=== PATIENT | male | born 1960 | race Caucasian/White ===

== ENCOUNTER → 2016-11-10 | Outpatient (CLI) | payer OTHER ==
[~2016-11-10] MED LIST: ACET325S8 PO; CHLO25CA PO; DILA100C PO; IBUP800T23 PO; PHEN100C PO
== END ==
LOC: CLAB 12:18
PROVIDERS: ATTEND Family Medicine
DX: R56.9 Unspecified convulsions (principal)
CPT/HCPCS: 36415; 80185

== ENCOUNTER → 2016-11-16 | Outpatient (CLI) | payer OTHER ==
[~2016-11-16] MED LIST changes: -ACET325S8 PO; -CHLO25CA PO; -DILA100C PO
[2016-11-16 07:24] LABS: AUTOMATED NEUTROPHIL # 3.9 TH/MM3 (1.8-7.7); BASOPHIL % 0.7 % (0.0-2.0); EOSINOPHIL # 0.2 TH/MM3 (0-0.4); EOSINOPHIL % 3.4 % (0.0-4.0); HEMATOCRIT 35.9 % (39.0-51.0); HEMO FLAGS DIFF FINAL; LYMPH % 20.5 % (9.0-44.0); LYMPHOCYTE # 1.2 TH/MM3 (1.0-4.8); MEAN CELL VOLUME 89.1 FL (80.0-100.0); MEAN CORPUSCULAR HEMOGLOBIN 31.4 PG (27.0-34.0); MEAN CORPUSCULAR HGB CONC 35.2 % (32.0-36.0); MONO % 9.9 % (0.0-8.0); NEUT % 65.5 % (16.0-70.0); PLATELET COUNT 251 TH/MM3 (150-450); RED BLOOD COUNT 4.03 MIL/MM3 (4.50-5.90); RED CELL DISTRIBUTION WIDTH 13.2 % (11.6-17.2)
[2016-11-16 07:55] LABS: AST (GOT) 19 U/L (15-37); BLOOD UREA NITROGEN 10 MG/DL (7-18); CHLORIDE 106 MEQ/L (98-107); GLOMERULAR FILTRATION RATE 86 ML/MIN (>89); GLUCOSE,FASTING 85 MG/DL (74-99); POTASSIUM 4.3 MEQ/L (3.5-5.1); SODIUM (NA) 140 MEQ/L (136-145)
[2016-11-16 08:04] LABS: ALKALINE PHOSPHATASE 146 U/L (45-117); ALT (GPT) 20 U/L (12-78); ANION GAP 8 MEQ/L (5-15); BICARBONATE 26.1 MEQ/L (21.0-32.0); HDL CHOLESTEROL 60.3 MG/DL (40.0-60.0); TOTAL BILIRUBIN ADULT 0.3 MG/DL (0.2-1.0)
[2016-11-16 08:05] LABS: LDL CHOLESTEROL 102 MG/DL (0-99)
== END ==
LOC: CLAB 08-17 12:43
PROVIDERS: ATTEND Family Medicine
DX: F10.10 Alcohol abuse, uncomplicated (principal); R56.9 Unspecified convulsions; Z72.0 Tobacco use
CPT/HCPCS: 36415; 80053; 80061; 84443; 85025

== ENCOUNTER → 2016-11-22 | Outpatient (CLI) | payer OTHER | LOC: CLAB 06:39 | PROVIDERS: ATTEND Family Medicine | DX: R56.9 Unspecified convulsions (principal) | CPT/HCPCS: 80185 ==

== ENCOUNTER → 2016-11-29 | Outpatient (CLI) | payer OTHER | LOC: CLAB 07:08 | PROVIDERS: ATTEND Family Medicine | DX: R56.9 Unspecified convulsions (principal) | CPT/HCPCS: 36415; 80185 ==

== ENCOUNTER → 2016-12-06 | Outpatient (CLI) | payer OTHER | LOC: CLAB 13:38 | PROVIDERS: ATTEND Family Medicine | DX: R56.9 Unspecified convulsions (principal) | CPT/HCPCS: 36415; 80185 ==

== ENCOUNTER → 2017-03-16 | Outpatient (CLI) | payer OTHER ==
[~2017-03-16] MED LIST changes: +CYCL1TAB29 PO
== END ==
LOC: CLAB 07:35
PROVIDERS: ATTEND Family Medicine
DX: R56.9 Unspecified convulsions (principal)
CPT/HCPCS: 36415; 80185

== ENCOUNTER 2017-07-05 16:26 | Emergency (ER) | payer OTHER ==
[~2017-07-05 16:26] MED LIST changes: +CYCL10TA PO; -CYCL1TAB29 PO; +IBUP1TAB7 PO; -IBUP800T23 PO
[2017-07-05 16:27] VITALS: BP 126/81; PULSE 97; RESP 18; TEMP 98.9; O2SAT 97
[2017-07-05] MEDS ORDERED: DILA100C PO (17:54)
--- NOTE | 2017-07-05 17:55 | PD ---
HPI Chief Complaint: Medication Refill Request Time Seen by Provider: 16:48 Travel History International Travel<30 days: No Contact w/Intl Traveler<30days: No Traveled to known affect area: No History of Present Illness HPI 56-year-old male here requesting refill of his Dilantin. Patient has known seizure history and has been on Dilantin for the last 25 years. He reports he ran out of his Dilantin 3 days ago and has been unable to get the prescription refilled because he was unable to reach Dr. Quach's office. He denies any seizure activity. No medical complaint. He reports he's been on the same dosage of Dilantin for greater than 5 years. [facility] Past Medical History Depression: Yes Cancer: No Cardiovascular Problems: No Diabetes: No Diminished Hearing: No Endocrine: No Genitourinary: No Headaches: Yes Immune Disorder: No Musculoskeletal: No Neurologic: Yes (SEIZURE) Psychiatric: No Reproductive: No Respiratory: No Seizures: Yes Past Surgical History Other Surgery: Yes (HERNIA REPAIR) Social History Alcohol Use: Yes (4 beers daily) Tobacco Use: No Substance Use: No Allergies-Medications (Allergen,Severity, Reaction): Coded Allergies: No Known Allergies (Verified Adverse Reaction, Unknown, 07/05/17) Reported Meds & Prescriptions Reported Meds & Active Scripts Active Dilantin (Phenytoin Extended) 100 Mg Cap 100 Mg PO QID Phenytoin Extended 100 Mg Cap 100 Mg PO QID Review of Systems Except as stated in HPI: all other systems reviewed are Neg Physical Exam Narrative GENERAL: Alert well-appearing male SKIN: Warm and dry. HEAD: Normocephalic. EYES: No scleral icterus. No injection or drainage. NECK: Supple, trachea midline. No JVD or lymphadenopathy. CARDIOVASCULAR: Regular rate and rhythm without murmurs, gallops, or rubs. RESPIRATORY: Breath sounds equal bilaterally. No accessory muscle use. GASTROINTESTINAL: Abdomen soft, non-tender, nondistended. MUSCULOSKELETAL: No cyanosis, or edema. BACK: Nontender without obvious deformity. No CVA tenderness. Data Data Last Documented VS Vital Signs Date Time Temp Pulse Resp B/P (MAP) Pulse Ox O2 Delivery O2 Flow Rate FiO2 07/05/17 18:15 07/05/17 16:27 98.9 97 18 97 Room Air Orders Orders Phenytoin (Dilantin) (07/05/17 16:52) Phenytoin (Dilantin) (07/05/17 18:00) Ed Discharge Order (07/05/17 17:57) Labs Laboratory Tests Test 07/05/17 17:00 Phenytoin (Dilantin) Level 4.6 MCG/ML [facility] Medical Decision Making Medical Screen Exam Complete: Yes Emergency Medical Condition: Yes Differential Diagnosis Medication refill, seizure disorder, Narrative Course 56-year-old male with known seizure disorder here requesting refill of his Dilantin. Due to insurance changes patient was unable to follow up with his doctor Dr. Charles Fry. He has been off his Dilantin for the last 3 days. He reports no seizure activity. The wet level was drawn here in emergency department found below 4.4. Patient will be represcribed his Dilantin at his current dose. He'll be given 1 dose here. He is instructed to follow-up with Dr. Quach. Diagnosis Primary Impression: Medication refill Referrals: Sakshi Quach MD [facility] Additional Instructions: Take the medication as per prescription. Follow with Dr. Quach. Scripts Phenytoin Extended (Dilantin) 100 Mg Cap 100 MG PO QID for Control Seizures, #120 CAP 0 Refills Prov: Lisa Martinez 07/05/17 Disposition: 01 DISCHARGE HOME Condition: Stable Lisa Martinez Jul 05, 2017 17:55
[2017-07-05] MEDS ORDERED: PHENYTOIN SODIUM 100 MG CAP PO ONE (18:00)
== END 2017-07-05 18:22 | disposition home or self-care (01) ==
LOC: NEPK 16:26
DX: G40.909 Epilepsy, unspecified, not intractable, without status epilepticus (principal); Z76.0 Encounter for issue of repeat prescription
CPT/HCPCS: 80185; 99283

== ENCOUNTER 2017-08-15 05:04 | Emergency (ER) | payer OTHER ==
[~2017-08-15] VITALS: Ht 177.8 cm; Wt 60.0 kg
[~2017-08-15 05:04] MED LIST changes: -CYCL10TA PO; +DILA100C PO; -IBUP1TAB7 PO
[2017-08-15 05:07] VITALS: BP 123/91; PULSE 90; RESP 16; TEMP 97.5; O2SAT 99
[2017-08-15] MEDS ORDERED: SODIUM CHLORIDE 0.9% FLUSH 10 ML FLUSH IVF PRN (05:30)
--- NOTE | 2017-08-15 05:34 | PD ---
HPI Chief Complaint: Dizziness Time Seen by Provider: 05:28 Travel History International Travel<30 days: No Contact w/Intl Traveler<30days: No Traveled to known affect area: No History of Present Illness HPI 56-year-old male patient with history of seizures currently on Dilantin, presents to the ER today for 3 days history of lightheadedness, feels like things are moving, feels unsteady. He also states he has had a few episodes of vomiting. He denies any headaches, new seizures, fevers, chest pains, shortness of breath, or other symptoms. He states that the last time sitting with this happened, he was blowing his Dilantin level. He states he has ran out of his Dilantin for several weeks. Modifying Factors: None Associated Signs & Symptoms: Dizziness, unsteadiness Risk Factors: Seizures PFSH Past Medical History Depression: Yes Cancer: No Cardiovascular Problems: No Diabetes: No Diminished Hearing: No Endocrine: No Genitourinary: No Headaches: Yes Immune Disorder: No Musculoskeletal: No Neurologic: Yes (SEIZURE) Psychiatric: No Reproductive: No Respiratory: No Immunizations Current: Yes Seizures: Yes Past Surgical History Other Surgery: Yes (HERNIA REPAIR) Social History Alcohol Use: No (QUIT) Tobacco Use: No Substance Use: No Allergies-Medications (Allergen,Severity, Reaction): Coded Allergies: No Known Allergies (Verified Adverse Reaction, Unknown, 08/15/17) Reported Meds & Prescriptions Reported Meds & Active Scripts Active Dilantin (Phenytoin Extended) 100 Mg Cap 100 Mg PO QID Phenytoin Extended 100 Mg Cap 100 Mg PO QID Review of Systems Except as stated in HPI: all other systems reviewed are Neg Physical Exam Narrative GENERAL: Well-developed middle age white male patient currently in mild distress. Awake and oriented 3. SKIN: Focused skin assessment warm/dry. HEAD: Atraumatic. Normocephalic. EYES: Pupils equal and round. No scleral icterus. No injection or drainage. ENT: No nasal bleeding or discharge. Mucous membranes pink and moist. NECK: Trachea midline. No JVD. Supple. CARDIOVASCULAR: Regular rate and rhythm. No murmur appreciated. RESPIRATORY: No accessory muscle use. Clear to auscultation. Breath sounds equal bilaterally. GASTROINTESTINAL: Abdomen soft, non-tender, nondistended. Hepatic and splenic margins not palpable. MUSCULOSKELETAL: No obvious deformities. No clubbing. No cyanosis. No edema. NEUROLOGICAL: Awake and alert. No obvious cranial nerve deficits. Motor grossly within normal limits. Normal speech. PSYCHIATRIC: Appropriate mood and affect; insight and judgment normal. Data Data Last Documented VS Vital Signs Date Time Temp Pulse Resp B/P (MAP) Pulse Ox O2 Delivery O2 Flow Rate FiO2 08/15/17 05:07 97.5 90 16 123/91 (102) 99 Orders Orders Complete Blood Count With Diff (08/15/17 05:28) Phenytoin (Dilantin) (08/15/17 05:28) Electrocardiogram (08/15/17 ) Ct Brain W/O Iv Contrast(Rout) (08/15/17 ) Blood Glucose (08/15/17 05:28) Ecg Monitoring (08/15/17 05:28) Iv Access Insert/Monitor (08/15/17 05:28) Oximetry (08/15/17 05:28) Comprehensive Metabolic Panel (08/15/17 05:28) Sodium Chloride 0.9% Flush (Ns Flush) (08/15/17 05:30) Lipase (08/15/17 05:28) Influenzae A/B Antigen (08/15/17 05:28) Labs Laboratory Tests Test 08/15/17 05:40 White Blood Count 6.6 TH/MM3 Red Blood Count 4.07 MIL/MM3 Hemoglobin 12.9 GM/DL Hematocrit 36.0 % Mean Corpuscular Volume 88.5 FL Mean Corpuscular Hemoglobin 31.8 PG Mean Corpuscular Hemoglobin Concent 35.9 % Red Cell Distribution Width 13.1 % Platelet Count 376 TH/MM3 Mean Platelet Volume 8.4 FL Neutrophils (%) (Auto) 56.5 % Lymphocytes (%) (Auto) 27.6 % Monocytes (%) (Auto) 10.3 % Eosinophils (%) (Auto) 4.4 % Basophils (%) (Auto) 1.2 % Neutrophils # (Auto) 3.8 TH/MM3 Lymphocytes # (Auto) 1.8 TH/MM3 Monocytes # (Auto) 0.7 TH/MM3 Eosinophils # (Auto) 0.3 TH/MM3 Basophils # (Auto) 0.1 TH/MM3 CBC Comment DIFF FINAL Differential Comment MDM Medical Decision Making Medical Screen Exam Complete: Yes Emergency Medical Condition: Yes Medical Record Reviewed: Yes Interpretation(s) EKG shows NSR, no ST elevation or depression, and no arrhythmias. No significant T-wave inversions. Laboratory Tests Test 08/15/17 05:40 Red Blood Count 4.07 MIL/MM3 (4.50-5.90) Hemoglobin 12.9 GM/DL (13.0-17.0) Hematocrit 36.0 % (39.0-51.0) Monocytes (%) (Auto) 10.3 % (0.0-8.0) Eosinophils (%) (Auto) 4.4 % (0.0-4.0) Last [address] 08/15/17 0000 Signed Impressions: Service Date/Time: Tuesday, August 15, 2017 05:42 - CONCLUSION: 1. No acute intracranial abnormalities. Monster York MD Differential Diagnosis Unsteadiness, dizziness: Dehydration versus metabolic issues versus vertigo versus acute intracranial processes Narrative Course CT the brain did not show any signs of acute intracranial processes. Lab work was ordered, CBC was unremarkable. EKG did not show dysrhythmias. Physician Communication Physician Communication Case is signed out to Dr. Hoang at 7 AM pending metabolic panel and Dilantin level. Disposition based on findings. Diagnosis Primary Impression: Dizziness Condition: Stable Rozina Bernal MD Aug 15, 2017 05:34
[2017-08-15 06:01] LABS: AUTOMATED NEUTROPHIL # 3.8 TH/MM3 (1.8-7.7); BASOPHIL # 0.1 TH/MM3 (0-0.2); BASOPHIL % 1.2 % (0.0-2.0); EOSINOPHIL # 0.3 TH/MM3 (0-0.4); EOSINOPHIL % 4.4 % (0.0-4.0); HEMOGLOBIN 12.9 GM/DL (13.0-17.0); LYMPH % 27.6 % (9.0-44.0); LYMPHOCYTE # 1.8 TH/MM3 (1.0-4.8); MEAN CELL VOLUME 88.5 FL (80.0-100.0); MEAN CORPUSCULAR HEMOGLOBIN 31.8 PG (27.0-34.0); MEAN CORPUSCULAR HGB CONC 35.9 % (32.0-36.0); MEAN PLATELET VOLUME 8.4 FL (7.0-11.0); MONO % 10.3 % (0.0-8.0); MONOCYTE # 0.7 TH/MM3 (0-0.9); NEUT % 56.5 % (16.0-70.0); PLATELET COUNT 376 TH/MM3 (150-450); RED BLOOD COUNT 4.07 MIL/MM3 (4.50-5.90); RED CELL DISTRIBUTION WIDTH 13.1 % (11.6-17.2); WHITE BLOOD COUNT 6.6 TH/MM3 (4.0-11.0)
--- NOTE | 2017-08-15 06:09 | RADRPT ---
EXAM DATE/TIME: 08/15/2017 05:42 [place] COMPARISON: No previous studies available for comparison. INDICATIONS : Dizziness. RADIATION DOSE: 35.56 CTDIvol (mGy) MEDICAL HISTORY : Seizures. SURGICAL HISTORY : None. ENCOUNTER: Initial ACUITY: 1 day PAIN SCALE: 0/10 LOCATION: cranial TECHNIQUE: Multiple contiguous axial images were obtained of the head. Using automated exposure control and adj ustment of the mA and/or kV according to patient size, radiation dose was kept as low as reasonably a chievable to obtain optimal diagnostic quality images. DICOM format image data is available electro nically for review and comparison. FINDINGS: CEREBRUM: The ventricles are normal for age. No evidence of midline shift, mass lesion, hemorrhage or acute in farction. No extra-axial fluid collections are seen. POSTERIOR FOSSA: The cerebellum and brainstem are intact. The 4th ventricle is midline. The cerebellopontine angle i s unremarkable. EXTRACRANIAL: The visualized portion of the orbits is intact. SKULL: The calvaria is intact. No evidence of skull fracture. CONCLUSION: 1. No acute intracranial abnormalities. Monster York MD on August 15, 2017 at 6:05 Board Certified Radiologist. This report was verified electronically.
[2017-08-15 07:10] VITALS: RESP 16; O2SAT 100
[2017-08-15 07:11] VITALS: BP 127/79; PULSE 64; RESP 16; TEMP 97.8; O2SAT 100
[2017-08-15 08:29] LABS: GLOMERULAR FILTRATION RATE 98 ML/MIN (>89)
[2017-08-15 08:30] LABS: ALBUMIN 3.9 GM/DL (3.4-5.0); ALT (GPT) 15 U/L (12-78); AST (GOT) 14 U/L (15-37); BICARBONATE 28.3 MEQ/L (21.0-32.0); BLOOD UREA NITROGEN 13 MG/DL (7-18); CALCIUM 8.9 MG/DL (8.5-10.1); CHLORIDE 104 MEQ/L (98-107); CREATININE 0.81 MG/DL (0.60-1.30); GLUCOSE,RANDOM 84 MG/DL (74-106); LIPASE 189 U/L (73-393); SODIUM (NA) 137 MEQ/L (136-145)
[2017-08-15 08:32] LABS: ALKALINE PHOSPHATASE 135 U/L (45-117); PHENYTOIN (DILANTIN) 0.7 MCG/ML (10.0-20.0); TOTAL BILIRUBIN ADULT 0.2 MG/DL (0.2-1.0); TOTAL PROTEIN 6.9 GM/DL (6.4-8.2)
[2017-08-15] MEDS ORDERED: FOSPHENYTOIN SODIUM 500 MG PE/10 ML VIAL IV ONE (08:45)
[2017-08-15 09:00] VITALS: BP 118/81; PULSE 67; RESP 16; TEMP 97.9; O2SAT 100
--- NOTE | 2017-08-15 09:10 | PD ---
Data Data Last Documented VS Vital Signs Date Time Temp Pulse Resp B/P (MAP) Pulse Ox O2 Delivery O2 Flow Rate FiO2 08/15/17 10:20 97.7 78 16 124/78 (93) 99 08/15/17 09:00 Room Air Orders Orders Complete Blood Count With Diff (08/15/17 05:28) Phenytoin (Dilantin) (08/15/17 05:28) Electrocardiogram (08/15/17 ) Ct Brain W/O Iv Contrast(Rout) (08/15/17 ) Blood Glucose (08/15/17 05:28) Ecg Monitoring (08/15/17 05:28) Iv Access Insert/Monitor (08/15/17 05:28) Oximetry (08/15/17 05:28) Comprehensive Metabolic Panel (08/15/17 05:28) Sodium Chloride 0.9% Flush (Ns Flush) (08/15/17 05:30) Lipase (08/15/17 05:28) Influenzae A/B Antigen (08/15/17 05:28) Fosphenytoin Inj (Cerebyx Inj) (08/15/17 08:45) Fosphenytoin Inj (Cerebyx Inj) (08/15/17 10:00) Ed Discharge Order (08/15/17 10:04) Labs Laboratory Tests Test 08/15/17 05:40 08/15/17 07:50 White Blood Count 6.6 TH/MM3 Red Blood Count 4.07 MIL/MM3 Hemoglobin 12.9 GM/DL Hematocrit 36.0 % Mean Corpuscular Volume 88.5 FL Mean Corpuscular Hemoglobin 31.8 PG Mean Corpuscular Hemoglobin Concent 35.9 % Red Cell Distribution Width 13.1 % Platelet Count 376 TH/MM3 Mean Platelet Volume 8.4 FL Neutrophils (%) (Auto) 56.5 % Lymphocytes (%) (Auto) 27.6 % Monocytes (%) (Auto) 10.3 % Eosinophils (%) (Auto) 4.4 % Basophils (%) (Auto) 1.2 % Neutrophils # (Auto) 3.8 TH/MM3 Lymphocytes # (Auto) 1.8 TH/MM3 Monocytes # (Auto) 0.7 TH/MM3 Eosinophils # (Auto) 0.3 TH/MM3 Basophils # (Auto) 0.1 TH/MM3 CBC Comment DIFF FINAL Differential Comment Blood Urea Nitrogen 13 MG/DL Creatinine 0.81 MG/DL Random Glucose 84 MG/DL Total Protein 6.9 GM/DL Albumin 3.9 GM/DL Calcium Level 8.9 MG/DL Alkaline Phosphatase 135 U/L Aspartate Amino Transf (AST/SGOT) 14 U/L Alanine Aminotransferase (ALT/SGPT) 15 U/L Total Bilirubin 0.2 MG/DL Sodium Level 137 MEQ/L Potassium Level 4.3 MEQ/L Chloride Level 104 MEQ/L Carbon Dioxide Level 28.3 MEQ/L Anion Gap 5 MEQ/L Estimat Glomerular Filtration Rate 98 ML/MIN Lipase 189 U/L Phenytoin (Dilantin) Level 0.7 MCG/ML MDM Supervised Visit with SERGE: No Narrative Course Patient care assumed from Dr. Duarte at 0700, this 56-year-old male who states he does not feel right after he ran out of his Dilantin a few days ago. I'm asked to follow up the Dilantin level loaded necessary. Patient is very nonspecific complaints of dizziness, neurologically intact, he was loaded with 1 g of Cerebyx, his Dilantin was refilled, discussing [place] dosing regimen but he states been on it for years, discussed at length follow-up with the [facility] and return to ED criteria. He stable for discharge. Diagnosis Primary Impression: Dizziness Referrals: [facility] Med/Other Pt SpecificInfo: Prescription(s) given Scripts Phenytoin Extended (Dilantin) 100 Mg Cap 100 MG PO QID for Control Seizures, #120 CAP 0 Refills Prov: Miguel A Hoagn MD 08/15/17 Disposition: 01 DISCHARGE HOME Condition: Stable Miguel A Hoang MD Aug 15, 2017 09:10
[2017-08-15] MEDS ORDERED: FOSPHENYTOIN INJ 1,000 MGPE in SODIUM CHLORIDE 0.9% INJ 50 ML IV ONE (10:00)
[2017-08-15] MEDS ORDERED: DILA100C PO (10:03)
[2017-08-15 10:20] VITALS: BP 124/78; TEMP 97.7
--- NOTE | 2017-08-15 19:34 | EKG ---
Date Performed: 08/15/2017 Time Performed: 05:35:36 PTAGE: 56 years EKG: Sinus rhythm POSSIBLE RIGHT VENTRICULAR CONDUCTION DELAY Since previous tracing, no significant change noted [facility] ECG PREVIOUS TRACING : 02/16/2016 13.30 DOCTOR: Garcia White Interpretating Date/Time 08/15/2017 19:34:02
== END 2017-08-15 10:20 | disposition home or self-care (01) ==
LOC: NEPE 05:04
DX: R42 Dizziness and giddiness (principal); R94.31 Abnormal electrocardiogram [ECG] [EKG]; R56.9 Unspecified convulsions; F32.9 Major depressive disorder, single episode, unspecified; Z79.899 Other long term (current) drug therapy
CPT/HCPCS: 70450; 80053; 80185; 83690; 85025; 87804; 93005; 96365; 99285; Q2009

== ENCOUNTER 2017-10-03 12:10 | Emergency (ER) | payer OTHER ==
[2017-10-03 12:32] VITALS: BP 135/74; PULSE 77; RESP 18; TEMP 98.4; O2SAT 99
[2017-10-03 13:33] LABS: AUTOMATED NEUTROPHIL # 4.4 TH/MM3 (1.8-7.7); BASOPHIL # 0.1 TH/MM3 (0-0.2); EOSINOPHIL # 0.2 TH/MM3 (0-0.4); EOSINOPHIL % 3.4 % (0.0-4.0); HEMATOCRIT 42.7 % (39.0-51.0); HEMOGLOBIN 14.7 GM/DL (13.0-17.0); LYMPH % 24.4 % (9.0-44.0); LYMPHOCYTE # 1.7 TH/MM3 (1.0-4.8); MEAN CELL VOLUME 89.7 FL (80.0-100.0); MEAN CORPUSCULAR HGB CONC 34.6 % (32.0-36.0); MEAN PLATELET VOLUME 8.5 FL (7.0-11.0); MONO % 9.6 % (0.0-8.0); MONOCYTE # 0.7 TH/MM3 (0-0.9); NEUT % 61.6 % (16.0-70.0); PLATELET COUNT 249 TH/MM3 (150-450); RED BLOOD COUNT 4.75 MIL/MM3 (4.50-5.90); RED CELL DISTRIBUTION WIDTH 13.3 % (11.6-17.2); WHITE BLOOD COUNT 7.2 TH/MM3 (4.0-11.0)
[2017-10-03 13:50] LABS: ALT (GPT) 17 U/L (12-78)
[2017-10-03 13:53] LABS: ALKALINE PHOSPHATASE 136 U/L (45-117); PHENYTOIN (DILANTIN) 0.6 MCG/ML (10.0-20.0); TOTAL BILIRUBIN ADULT 0.4 MG/DL (0.2-1.0); TOTAL PROTEIN 7.1 GM/DL (6.4-8.2)
[2017-10-03 13:55] LABS: ALBUMIN 3.7 GM/DL (3.4-5.0); AST (GOT) 17 U/L (15-37); BICARBONATE 24.7 MEQ/L (21.0-32.0); BLOOD UREA NITROGEN 9 MG/DL (7-18); CALCIUM 9.1 MG/DL (8.5-10.1); CHLORIDE 107 MEQ/L (98-107); CREATININE 0.84 MG/DL (0.60-1.30); GLOMERULAR FILTRATION RATE 94 ML/MIN (>89); GLUCOSE,RANDOM 92 MG/DL (74-106); MAGNESIUM 2.1 MG/DL (1.5-2.5); SODIUM (NA) 140 MEQ/L (136-145)
[2017-10-03 14:00] LABS: OVALOCYTES 1+ (NORMAL)
--- NOTE | 2017-10-03 14:06 | PD ---
HPI Chief Complaint: Seizure Time Seen by Provider: 14:03 Travel History International Travel<30 days: No Contact w/Intl Traveler<30days: No Traveled to known affect area: No History of Present Illness HPI 56-year-old male with well-known seizure disorder presents emergency department stating he ran out of his phenytoin 100 mg 4 times daily 2 weeks ago. He states last night he had a seizure, but denies any bodily harm currently. He is requesting refill of his medications today. Labs ordered in triage. He has no known drug allergies. PFSH Past Medical History Depression: Yes Cancer: No Cardiovascular Problems: No Diabetes: No Diminished Hearing: No Endocrine: No Genitourinary: No Headaches: Yes Immune Disorder: No Musculoskeletal: No Neurologic: Yes (SEIZURE) Psychiatric: No Reproductive: No Respiratory: No Immunizations Current: Yes Seizures: Yes Past Surgical History Other Surgery: Yes (HERNIA REPAIR) Social History Alcohol Use: No (QUIT) Tobacco Use: No Substance Use: No Allergies-Medications (Allergen,Severity, Reaction): Coded Allergies: No Known Allergies (Verified Adverse Reaction, Unknown, 08/15/17) Reported Meds & Prescriptions Reported Meds & Active Scripts Active Dilantin (Phenytoin Extended) 100 Mg Cap 100 Mg PO QID Phenytoin Extended 100 Mg Cap 100 Mg PO QID Review of Systems Except as stated in HPI: all other systems reviewed are Neg General / Constitutional: No: Fever, Chills Eyes: No: Visual changes HENT: No: Headaches, Vertigo, Lightheadedness, Sore Throat, Rhinitis, Rhinorrhea, Congestion, Nosebleed, Neck Stiffness, Neck Pain, Dental Difficulties, Earache Cardiovascular: No: Chest Pain or Discomfort Respiratory: No: Shortness of Breath Gastrointestinal: No: Abdominal Pain Genitourinary: No: Dysuria Musculoskeletal: No: Pain Skin: No Rash Neurologic: Positive: Seizures (See history of present illness per), No: Weakness Psychiatric: No: Depression Endocrine: No: Polydipsia Hematologic/Lymphatic: No: Easy Bruising Physical Exam Narrative GENERAL: Patient appears in no acute distress. He is resting comfortably on exam bed. SKIN: Warm and dry. Normal color. Normal turgor. No signs of trauma HEAD: Atraumatic. Normocephalic. Nontender. EYES: Pupils equal and round. No scleral icterus. No injection or drainage. ENT: No nasal bleeding or discharge. Mucous membranes pink and moist. No dental injury. No tongue or buccal membrane injury. Pharynx is clear. Airways patent. NECK: Trachea midline. Supple and nontender. CARDIOVASCULAR: Regular rate and rhythm. RESPIRATORY: No accessory muscle use. Clear to auscultation. Breath sounds equal bilaterally. GASTROINTESTINAL: Abdomen soft, non-tender, nondistended. Hepatic and splenic margins not palpable. MUSCULOSKELETAL: Extremities without clubbing, cyanosis, or edema. No obvious deformities. NEUROLOGICAL: Awake and alert. No obvious cranial nerve deficits. Motor grossly within normal limits. Five out of 5 muscle strength in the arms and legs. Normal speech. PSYCHIATRIC: Appropriate mood and affect; insight and judgment normal. Data Data Last Documented VS Vital Signs Date Time Temp Pulse Resp B/P (MAP) Pulse Ox O2 Delivery O2 Flow Rate FiO2 10/03/17 12:32 98.4 77 18 135/74 (94) 99 Orders Orders Complete Blood Count With Diff (10/03/17 12:33) Magnesium (Mg) (10/03/17 12:33) Comprehensive Metabolic Panel (10/03/17 12:33) Phenytoin (Dilantin) (10/03/17 12:33) Phenytoin (Dilantin) (10/03/17 14:15) Labs Laboratory Tests Test 10/03/17 13:00 White Blood Count 7.2 TH/MM3 Red Blood Count 4.75 MIL/MM3 Hemoglobin 14.7 GM/DL Hematocrit 42.7 % Mean Corpuscular Volume 89.7 FL Mean Corpuscular Hemoglobin 31.0 PG Mean Corpuscular Hemoglobin Concent 34.6 % Red Cell Distribution Width 13.3 % Platelet Count 249 TH/MM3 Mean Platelet Volume 8.5 FL Neutrophils (%) (Auto) 61.6 % Lymphocytes (%) (Auto) 24.4 % Monocytes (%) (Auto) 9.6 % Eosinophils (%) (Auto) 3.4 % Basophils (%) (Auto) 1.0 % Neutrophils # (Auto) 4.4 TH/MM3 Lymphocytes # (Auto) 1.7 TH/MM3 Monocytes # (Auto) 0.7 TH/MM3 Eosinophils # (Auto) 0.2 TH/MM3 Basophils # (Auto) 0.1 TH/MM3 CBC Comment AUTO DIFF Differential Comment AUTO DIFF CONFIRMED Platelet Estimate NORMAL Platelet Morphology Comment NORMAL Ovalocytes 1+ Blood Urea Nitrogen 9 MG/DL Creatinine 0.84 MG/DL Random Glucose 92 MG/DL Total Protein 7.1 GM/DL Albumin 3.7 GM/DL Calcium Level 9.1 MG/DL Magnesium Level 2.1 MG/DL Alkaline Phosphatase 136 U/L Aspartate Amino Transf (AST/SGOT) 17 U/L Alanine Aminotransferase (ALT/SGPT) 17 U/L Total Bilirubin 0.4 MG/DL Sodium Level 140 MEQ/L Potassium Level 3.8 MEQ/L Chloride Level 107 MEQ/L Carbon Dioxide Level 24.7 MEQ/L Anion Gap 8 MEQ/L Estimat Glomerular Filtration Rate 94 ML/MIN Phenytoin (Dilantin) Level 0.6 MCG/ML MDM Medical Decision Making Medical Screen Exam Complete: Yes Emergency Medical Condition: Yes Medical Record Reviewed: Yes Differential Diagnosis Seizure disorder. Need for medication refill. Need for local primary care follow-up. Narrative Course Patient is medically stable at time of exam. Labs show normal CBC Chemistry unremarkable Phenytoin level is low at 0.6. Patient is given phenytoin 200 mg p.o. now. Refill of his phenytoin is given 100 mg 4 times daily #120 Patient to follow-up with [facility] for refills. Diagnosis Primary Impression: Encounter for medication refill Additional Impression: Seizure Referrals: [facility] Patient Instructions: Epilepsy (DC), General Instructions Med/Other Pt SpecificInfo: Prescription(s) given Scripts Phenytoin Extended (Dilantin) 100 Mg Cap 100 MG PO QID for Control Seizures, #120 CAP 0 Refills Prov: Josefina Ricci DO 10/03/17 Disposition: 01 DISCHARGE HOME Condition: Stable Eliseo Sams Oct 03, 2017 14:06
[2017-10-03] MEDS ORDERED: DILA100C PO (14:07)
[2017-10-03] MEDS ORDERED: PHENYTOIN SODIUM 100 MG CAP PO ONE (14:15)
[2017-10-03 14:32] VITALS: BP 124/71
== END 2017-10-03 14:35 | disposition home or self-care (01) ==
LOC: NED 12:10 → NEPD 14:35
DX: G40.909 Epilepsy, unspecified, not intractable, without status epilepticus (principal); Z76.0 Encounter for issue of repeat prescription; F32.9 Major depressive disorder, single episode, unspecified
CPT/HCPCS: 80053; 80185; 83735; 85025; 99281

== ENCOUNTER 2017-11-20 17:19 | Emergency (ER) | payer SELFPAY ==
[~2017-11-20] VITALS: Ht 177.8 cm; Wt 63.0 kg
[2017-11-20 17:21] VITALS: BP 125/76; PULSE 90; RESP 19; TEMP 97.6; O2SAT 100
[2017-11-20] MEDS ORDERED: SODIUM CHLOR 0.9% 1000 ML INJ 1,000 ML IV ONE (17:38)
--- NOTE | 2017-11-20 17:41 | PD ---
HPI Chief Complaint: Medication Refill Request Time Seen by Provider: 17:33 Travel History International Travel<30 days: No Contact w/Intl Traveler<30days: No Traveled to known affect area: No History of Present Illness HPI 57-year-old male presents requesting medication refill. He has a history of seizures, he ran out of his Dilantin 100 mg qid 1-2 weeks ago. He has been seen here several times recently requesting Dilantin refills. He does not currently have a primary care physician or neurologist. He reports that yesterday a friend gave him some Dilantin and he took 2 tablets of his friends Dilantin. He reports that this morning he had some lightheadedness. This was brief and mild and resolved that he has been asymptomatic since then. He denies any associated chest pain, shortness of breath, palpitations, vertigo sensation, tinnitus, nausea or vomiting, headache. Denies any dietary changes. Denies any drug or alcohol use. He has no other complaints at this time. [facility] Past Medical History Depression: Yes Cancer: No Cardiovascular Problems: No Diabetes: No Diminished Hearing: No Endocrine: No Genitourinary: No Headaches: Yes Immune Disorder: No Musculoskeletal: No Neurologic: Yes (SEIZURE) Psychiatric: No Reproductive: No Respiratory: No Immunizations Current: Yes Seizures: Yes Tetanus Vaccination: > 5 Years Past Surgical History Other Surgery: Yes (HERNIA REPAIR) Social History Alcohol Use: No (QUIT) Tobacco Use: No (QUIT) Substance Use: No Allergies-Medications (Allergen,Severity, Reaction): Coded Allergies: No Known Allergies (Verified Adverse Reaction, Unknown, 10/03/17) Reported Meds & Prescriptions Reported Meds & Active Scripts Active Dilantin (Phenytoin Extended) 100 Mg Cap 100 Mg PO QID Dilantin (Phenytoin Extended) 100 Mg Cap 100 Mg PO QID Phenytoin Extended 100 Mg Cap 100 Mg PO QID Review of Systems Except as stated in HPI: all other systems reviewed are Neg Physical Exam Narrative GENERAL: Well-developed well-nourished male in no acute distress sitting upright in hospital bed vital signs reviewed SKIN: Warm and dry. HEAD: Atraumatic. Normocephalic. EYES: Pupils equal and round. No scleral icterus. No injection or drainage. ENT: No nasal bleeding or discharge. Mucous membranes pink and moist. NECK: Trachea midline. No JVD. CARDIOVASCULAR: Regular rate and rhythm. No murmur appreciated. RESPIRATORY: No accessory muscle use. Clear to auscultation. Breath sounds equal bilaterally. GASTROINTESTINAL: Abdomen soft, non-tender, nondistended. Hepatic and splenic margins not palpable. MUSCULOSKELETAL: No obvious deformities. No clubbing. No cyanosis. No edema. NEUROLOGICAL: Awake and alert. No obvious cranial nerve deficits. Motor grossly within normal limits. Normal speech. Data Data Last Documented VS Vital Signs Date Time Temp Pulse Resp B/P (MAP) Pulse Ox O2 Delivery O2 Flow Rate FiO2 11/20/17 17:21 97.6 90 19 125/76 (92) 100 Orders Orders Electrocardiogram (11/20/17 17:38) Basic Metabolic Panel (Bmp) (11/20/17 17:38) Complete Blood Count With Diff (11/20/17 17:38) Magnesium (Mg) (11/20/17 17:38) Ecg Monitoring (11/20/17 17:38) Iv Access Insert/Monitor (11/20/17 17:38) Sodium Chlor 0.9% 1000 Ml Inj (Ns 1000 M (11/20/17 17:38) Phenytoin (Dilantin) (11/20/17 17:38) Ed Discharge Order (11/20/17 18:32) Potassium Chloride (Kcl) (11/20/17 18:45) Labs Laboratory Tests Test 11/20/17 17:42 White Blood Count 5.7 TH/MM3 Red Blood Count 4.10 MIL/MM3 Hemoglobin 12.8 GM/DL Hematocrit 36.6 % Mean Corpuscular Volume 89.2 FL Mean Corpuscular Hemoglobin 31.2 PG Mean Corpuscular Hemoglobin Concent 34.9 % Red Cell Distribution Width 13.3 % Platelet Count 244 TH/MM3 Mean Platelet Volume 7.8 FL Neutrophils (%) (Auto) 57.8 % Lymphocytes (%) (Auto) 28.1 % Monocytes (%) (Auto) 10.3 % Eosinophils (%) (Auto) 3.0 % Basophils (%) (Auto) 0.8 % Neutrophils # (Auto) 3.3 TH/MM3 Lymphocytes # (Auto) 1.6 TH/MM3 Monocytes # (Auto) 0.6 TH/MM3 Eosinophils # (Auto) 0.2 TH/MM3 Basophils # (Auto) 0.0 TH/MM3 CBC Comment DIFF FINAL Differential Comment Blood Urea Nitrogen 9 MG/DL Creatinine 0.76 MG/DL Random Glucose 91 MG/DL Calcium Level 8.3 MG/DL Magnesium Level 2.0 MG/DL Sodium Level 140 MEQ/L Potassium Level 3.4 MEQ/L Chloride Level 106 MEQ/L Carbon Dioxide Level 26.9 MEQ/L Anion Gap 7 MEQ/L Estimat Glomerular Filtration Rate 105 ML/MIN Phenytoin (Dilantin) Level 1.8 MCG/ML [facility] Medical Decision Making Medical Screen Exam Complete: Yes Emergency Medical Condition: Yes Medical Record Reviewed: Yes Differential Diagnosis Medication refill, Dilantin toxicity, orthostatic hypotension, electrolyte abnormality, hypoglycemia, vertigo Narrative Course The patient was placed on ECG monitoring pulse oximetry. A 12 EKG was obtained. The patient was given IV fluids. Lab work has been ordered. Potassium 3.4 otherwise lab work is unremarkable. Oral potassium chloride ordered. Dilantin is subtherapeutic. EKG reveals normal sinus rhythm. Patient is stable for discharge, he will be given a 30 day supply of his Dilantin. Diagnosis Primary Impression: Medication refill Referrals: [facility] Additional Instructions: Medication as prescribed. Establish care with a primary care physician. Return for any emergent medical conditions. Med/Other Pt SpecificInfo: Prescription(s) given Scripts Phenytoin Extended (Dilantin) 100 Mg Cap 100 MG PO QID for Control Seizures, #120 CAP 0 Refills Prov: Toribio Arias MD 11/20/17 Disposition: 01 DISCHARGE HOME Condition: Stable Francisco Lemos November 20, 2017 17:41
[2017-11-20 18:00] LABS: AUTOMATED NEUTROPHIL # 3.3 TH/MM3 (1.8-7.7); BASOPHIL % 0.8 % (0.0-2.0); EOSINOPHIL # 0.2 TH/MM3 (0-0.4); HEMATOCRIT 36.6 % (39.0-51.0); HEMOGLOBIN 12.8 GM/DL (13.0-17.0); LYMPH % 28.1 % (9.0-44.0); LYMPHOCYTE # 1.6 TH/MM3 (1.0-4.8); MEAN CELL VOLUME 89.2 FL (80.0-100.0); MEAN CORPUSCULAR HEMOGLOBIN 31.2 PG (27.0-34.0); MEAN CORPUSCULAR HGB CONC 34.9 % (32.0-36.0); MEAN PLATELET VOLUME 7.8 FL (7.0-11.0); MONO % 10.3 % (0.0-8.0); MONOCYTE # 0.6 TH/MM3 (0-0.9); NEUT % 57.8 % (16.0-70.0); PLATELET COUNT 244 TH/MM3 (150-450); RED CELL DISTRIBUTION WIDTH 13.3 % (11.6-17.2); WHITE BLOOD COUNT 5.7 TH/MM3 (4.0-11.0)
[2017-11-20 18:25] LABS: BICARBONATE 26.9 MEQ/L (21.0-32.0); CALCIUM 8.3 MG/DL (8.5-10.1); CREATININE 0.76 MG/DL (0.60-1.30)
[2017-11-20 18:26] LABS: PHENYTOIN (DILANTIN) 1.8 MCG/ML (10.0-20.0)
[2017-11-20] MEDS ORDERED: DILA100C PO (18:33)
[2017-11-20] MEDS ORDERED: PHENYTOIN SODIUM 100 MG CAP PO ONE (18:45)
[2017-11-20] MEDS ORDERED: POTASSIUM CHLORIDE 20 MEQ CONTROLLED RELEASE TAB PO ONE (18:45)
--- NOTE | 2017-11-21 10:48 | EKG ---
Date Performed: 11/20/2017 Time Performed: 17:58:53 PTAGE: 57 years EKG: Sinus rhythm NORMAL ECG Since the PREVIOUS TRACING , no significant change noted PREVIOUS TRACIN08/15/2017 05.35 DOCTOR: Glen Antunez Interpretating Date/Time 11/21/2017 10:46:46
== END 2017-11-20 18:46 | disposition home or self-care (01) ==
LOC: NEPD 17:19
DX: R56.9 Unspecified convulsions (principal); Z76.0 Encounter for issue of repeat prescription
CPT/HCPCS: 80048; 80185; 83735; 85025; 93005; 96360; 99284; J7030